=== PATIENT | male | born 1970 | race Caucasian/White ===

== ENCOUNTER 2017-09-19 22:06 | Emergency (ER) | payer OTHER ==
[~2017-09-19] VITALS: Ht 160 cm; Wt 95.7 kg
[~2017-09-19 22:06] MED LIST: LORA-476 PO; QUET100T PO
--- NOTE | 2017-09-19 22:06 | NUR ---
[facility] TO ER OF2
[2017-09-19 22:07] VITALS: BP 131/75
--- NOTE | 2017-09-19 22:23 | NUR ---
PT BIB [facility] C/O BODY PAIN S/P T/C 1 MTHS AGO, METH, ETOH, PRE-BOOK FOR MEDICAL CLEARANCE, CHRONIC PAIN, PTSD, ANXIETY. PAIN 04/04. Pupils equal and reactive to light bilaterally. No facial droop noted. No smile deficit noted. Speech normal for patient. Patient is alert and oriented to person, place, time and event. Bilateral hand crystallizer operator equal. Bilateral foot push equal.
--- NOTE | 2017-09-19 23:40 | NUR ---
Patient being evaluated by physician
[2017-09-19] MEDS ORDERED: LORazepam 1 MG TAB PO ONE (23:55)
[2017-09-20 00:15] VITALS: BP 123/72
--- NOTE | 2017-09-20 00:16 | NUR ---
Patient discharged with v/s stable. Written and verbal after care instructions given and explained. Patient alert, oriented and verbalized understanding of instructions. Police with in custody. All questions addressed prior to discharge. ID band removed. Patient advised to follow up with PMD.NO RX given. Patient educated on indication of medication including possible reaction and side effects. Opportunity to ask questions provided and answered.
== END 2017-09-20 00:15 ==
LOC: MED 22:06
DX: Z02.89 Encounter for other administrative examinations (principal); F19.90 Other psychoactive substance use, unspecified, uncomplicated; F41.9 Anxiety disorder, unspecified; R68.84 Jaw pain; J44.9 Chronic obstructive pulmonary disease, unspecified; I10 Essential (primary) hypertension; Z79.899 Other long term (current) drug therapy
CPT/HCPCS: 99283

== ENCOUNTER 2018-11-04 13:37 | Emergency (ER) | payer OTHER ==
[~2018-11-04] VITALS: Ht 162.6 cm; Wt 69.4 kg
[2018-11-04 13:56] VITALS: BP 120/69
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
[2018-11-04 15:34] VITALS: BP 124/68
--- NOTE | 2018-11-04 15:35 | NUR ---
Patient discharged with v/s stable. Written and verbal after care instructions given and explained. Patient alert, oriented and verbalized understanding of instructions. Ambulatory with steady gait. All questions addressed prior to discharge. ID band removed. Patient advised to follow up with PMD. Rx of IBUPROFEN 600MG, BACTRIM DS 800MG, KEFLEX 500MG. given. Patient educated on indication of medication including possible reaction and side effects. Opportunity to ask questions provided and answered.
== END 2018-11-04 15:35 | disposition home or self-care (01) ==
LOC: MED 13:37
DX: L03.114 Cellulitis of left upper limb (principal); J44.9 Chronic obstructive pulmonary disease, unspecified; I10 Essential (primary) hypertension; Z87.442 Personal history of urinary calculi; Z79.899 Other long term (current) drug therapy; W57.XXXA Bitten or stung by nonvenomous insect and other nonvenomous arthropods, initial encounter; Y93.89 Activity, other specified; Y92.89 Other specified places as the place of occurrence of the external cause; Y99.8 Other external cause status
CPT/HCPCS: 99283

== ENCOUNTER 2018-11-05 10:39 | Emergency (ER) | payer OTHER ==
[~2018-11-05] VITALS: Ht 165.1 cm; Wt 70.0 kg
[2018-11-05 10:49] VITALS: BP 146/85
[2018-11-05 12:25] VITALS: BP 146/85
[2018-11-05] MEDS: IBUPROFEN 600 MG TAB PO ONE (12:25)
== END 2018-11-05 12:25 | disposition home or self-care (01) ==
LOC: MED 10:39
DX: S60.812A Abrasion of left wrist, initial encounter (principal); J44.9 Chronic obstructive pulmonary disease, unspecified; I10 Essential (primary) hypertension; Z79.899 Other long term (current) drug therapy; X58.XXXA Exposure to other specified factors, initial encounter; Y93.89 Activity, other specified; Y92.89 Other specified places as the place of occurrence of the external cause; Y99.8 Other external cause status
CPT/HCPCS: 99281

== ENCOUNTER 2018-12-11 14:27 | Inpatient (IN) | payer OTHER ==
[~2018-12-11] VITALS: Ht 162.6 cm; Wt 71.7 kg
[2018-12-11 14:45] VITALS: BP 149/88
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
[2018-12-11] MEDS ORDERED: NACL 0.9% 1,000 ML IV SCH (16:44)
[2018-12-11] MEDS ORDERED: fentaNYL 0.05 MG/ML VIAL IVP ONE (16:45)
[2018-12-11] MEDS ORDERED: VANCOMYCIN 1,000 MG in DEXTROSE 5% 250 ML IV ONE (16:45)
[2018-12-11] MEDS ORDERED: VANCOMYCIN 1,000 MG VIAL ONE (17:00)
[2018-12-11 17:25] LABS: BASOPHILS % (AUTO) 0.4 % (0.0-2.0); EOSINOPHILS # (AUTO) 0.1 K/uL (0-0.4); HEMATOCRIT 43.4 % (36-52); HEMOGLOBIN 14.1 g/dL (12.0-18.0); LYMPHOCYTES # (AUTO) 2.6 K/uL (2.0-11.5); LYMPHOCYTES % (AUTO) 21.8 % (20.5-51.1); MEAN CORPUSCULAR HEMOGLOBIN 29 pg (27-31); MEAN CORPUSCULAR HGB CONC 33 g/dL (33-37); MEAN CORPUSCULAR VOLUME 89.5 fL (80-94); MONOCYTES % (AUTO) 8.3 % (1.7-9.3); NEUTROPHILS # (AUTO) 8.2 K/uL (1.8-7.7); NEUTROPHILS % (AUTO) 68.5 % (42.2-75.2); PLATELET COUNT (AUTO) 295 K/uL (140-450); RED BLOOD CELL COUNT(AUTO) 4.84 MIL/uL (4.20-6.10); WHITE BLOOD COUNT (AUTO) 11.9 K/uL (4.8-10.8)
[2018-12-11 17:34] LABS: ANION GAP 11.6 (8-16); CARBON DIOXIDE 29.3 mmol/L (21-32); POTASSIUM 3.9 mmol/L (3.5-5.1)
[2018-12-11 17:39] LABS: ALBUMIN 3.4 g/dL (3.4-5.0); TOTAL BILIRUBIN 0.2 mg/dL (0.0-1.0)
[2018-12-11 17:40] LABS: PROTHROMBIN TIME 9.4 secs (10.8-13.4)
[2018-12-11] MEDS ORDERED: ACETAMINOPHEN 325 MG TAB PO PRN (17:45)
[2018-12-11] MEDS ORDERED: VANCOMYCIN PER PHARMACY MC PRN (17:45)
[2018-12-11] MEDS ORDERED: ONDANSETRON 4 MG/2 ML VIAL IVP PRN (17:45)
--- NOTE | 2018-12-11 18:15 | NUR ---
PT TAKEN TO [facility] FLOOR BY KARISHMA NIXON VIA WHEELCHAIR
--- NOTE | 2018-12-11 18:25 | NUR ---
Patient will be admitted to care of DR CH. Admited to MS. Will go to room 106A. Belongings list completed. Report to ISAAC SCHWARZ.
--- NOTE | 2018-12-11 19:30 | NUR ---
RECEIVED REPORT FROM ISAAC SCHWARZ. PT SLEEPING IN BED. NO S/S OF DISTRESS. ON ROOM AIR. PTS R HAND INDEX FINGER SWOLLEN. PT HAS NO JEWELRY ON HAND. PT CELLULITIS ON LEFT HAND.IV ON LFA 22G. IVF INFUSING PER ORDERS. VANCO INFUSING. SKIN INTACT PER NURSE. PLAN OF CARE DISCUSSED. PT STATES, "I JUST WANT TO BE LEFT ALONE AND GO BACK TO SLEEP." ALL SAFETY MEASURES ARE IN PLACE. CALL LIGHT WITHIN REACH.
--- NOTE | 2018-12-11 20:03 | NUR ---
PAGED DR HODGES FOR ORDERS PT RATING PAIN 10/10 ORDER FOR MORPHINE RECEIVED. NO IVF.
[2018-12-11] MEDS: MORPHINE SULFATE 4 MG/ML SYR IVP PRN (20:41)
--- NOTE | 2018-12-11 20:41 | NUR ---
MORPHINE ADMINISTERED. ATTEMPTED TO DO ADMISSION ASSESSMENT. PT REFUSED. 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
--- NOTE | 2018-12-11 22:00 | NUR ---
ASSISTED PT WITH URINAL. PT GETS EASILY AGITATED AND THEN QUICKLY APOLOGIZES. SAFETY MEASURES IN PLACE. CALL LIGHT WITHIN REACH.
[2018-12-11 23:40] VITALS: BP 150/86
--- NOTE | 2018-12-11 23:42 | NUR ---
VITAL SIGNS ARE WITHIN NORMAL LIMITS.CALL LIGHT WITHIN REACH. WILL CONTINUE TO MONITOR.
--- NOTE | 2018-12-12 01:08 | NUR ---
PT SLEEPING. NO S/S OF DISTRESS. SAFETY MEASURES ARE IN PLACE. CALL LIGHT WITHIN REACH.
--- NOTE | 2018-12-12 04:06 | NUR ---
PT SLEEPING COMFORTABLY IN BED. NO S/S OF DISTRESS. CALL LIGHT WITHIN REACH.
[2018-12-12] MEDS: MORPHINE SULFATE 4 MG/ML SYR IVP PRN ×4 (04:22→23:48)
[2018-12-12 05:36] LABS: BASOPHILS % (AUTO) 0.2 % (0.0-2.0); EOSINOPHILS # (AUTO) 0.2 K/uL (0-0.4); EOSINOPHILS % (AUTO) 2.2 % (0.0-4.0); HEMATOCRIT 41.7 % (36-52); HEMOGLOBIN 13.7 g/dL (12.0-18.0); LYMPHOCYTES # (AUTO) 2.6 K/uL (2.0-11.5); LYMPHOCYTES % (AUTO) 26.1 % (20.5-51.1); MEAN CORPUSCULAR HEMOGLOBIN 29 pg (27-31); MEAN CORPUSCULAR HGB CONC 33 g/dL (33-37); MEAN CORPUSCULAR VOLUME 89.1 fL (80-94); MONOCYTES # (AUTO) 0.9 K/uL (0.8-1.0); MONOCYTES % (AUTO) 8.7 % (1.7-9.3); NEUTROPHILS # (AUTO) 6.2 K/uL (1.8-7.7); NEUTROPHILS % (AUTO) 62.8 % (42.2-75.2); PLATELET COUNT (AUTO) 300 K/uL (140-450); RED BLOOD CELL COUNT(AUTO) 4.68 MIL/uL (4.20-6.10); RED CELL DISTRIBUTION WIDTH 14.1 % (11.6-13.7); WHITE BLOOD COUNT (AUTO) 9.8 K/uL (4.8-10.8)
[2018-12-12 06:30] LABS: ALBUMIN 3.1 g/dL (3.4-5.0); ANION GAP 7.2 (8-16); CARBON DIOXIDE 30.6 mmol/L (21-32); CREATININE 0.9 mg/dL (0.7-1.3); POTASSIUM 3.8 mmol/L (3.5-5.1); TOTAL BILIRUBIN 0.4 mg/dL (0.0-1.0)
--- NOTE | 2018-12-12 07:21 | NUR ---
ENDORSED PT TO DAY SHIFT RN. PT IS IN STABLE CONDITION.
--- NOTE | 2018-12-12 07:21 | NUR ---
RECEIVED PATIENT REPORT AT BEDSIDE. PATIENT AWAKE AND ALERT. ERYTHEMA AND SWELLING NOTED ON THE RIGHT INDEX FINGER. NO DRAINAGE NOTED. FALL PRECAUTIONS IN PLACE. WILL CONTINUE TO MONITOR
[2018-12-12 07:43] VITALS: BP 151/88
[2018-12-12] MEDS ORDERED: VANCOMYCIN PER PHARMACY MC PRN (08:55)
--- NOTE | 2018-12-12 09:03 | NUR ---
SPOKE WITH KAYVA [phone], PATIENT'S SISTER, AND ASKED ABOUT PATIENT'S HOME MEDICATIONS. SISTER TO CALL BACK.
--- NOTE | 2018-12-12 09:45 | NUR ---
URINE SAMPLE COLLECTED AND SENT TO THE LAB
--- NOTE | 2018-12-12 10:17 | NUR ---
PATIENT ASLEEP IN BED. NO S/S OF DISTRESS NOTED AT THIS TIME
[2018-12-12 10:50] LABS: BARBITURATE, URINE NEG. ng/ml (NEG <=200); BENZODIAZEPINE, URINE NEG. ng/mL (NEG <=200); CANNABINOID, URINE NEG. ng/mL (NEG <=50); COCAINE, URINE NEG. ng/mL (NEG <=300); OPIATE, URINE NEG. ng/mL (NEG <=2000); PHENCYCLIDINE SCREEN,URINE NEG. ng/mL (NEG <=25)
[2018-12-12] MEDS: VANCOMYCIN 1GM/DEXT 5% PREMIX 200 ML IV SCH ×2 (11:14→22:59)
--- NOTE | 2018-12-12 12:03 | NUR ---
SPOKE TO PATIENT'S SISTER REGARDING PATIENT'S MED LIST AND WAS GIVEN PATIENT'S PHARMACY. SENT FAX REQUEST TO [facility] AND [facility] TO SEND PATIENT'S MEDICATIONS LIST.
[2018-12-12] MEDS ORDERED: HYDR25CA32 PO (14:33)
[2018-12-12] MEDS ORDERED: MIRT15TA PO (14:33)
[2018-12-12] MEDS ORDERED: CLIN300C2 PO (14:33)
[2018-12-12] MEDS ORDERED: OXCA150T2 PO (14:33)
[2018-12-12] MEDS ORDERED: ALBU0.0912 IH (14:33)
[2018-12-12] MEDS ORDERED: ACET-787 PO (14:33)
[2018-12-12] MEDS ORDERED: OXCA300T PO (14:33)
[2018-12-12] MEDS ORDERED: HYDR-5122 PO (14:33)
[2018-12-12] MEDS ORDERED: SULF1TAB12 PO (14:33)
[2018-12-12] MEDS ORDERED: AMOX500C25 PO (14:33)
[2018-12-12] MEDS ORDERED: LORA-476 PO (14:33)
[2018-12-12] MEDS ORDERED: HYDR-3293 PO (14:33)
[2018-12-12] MEDS ORDERED: CEPH250C16 PO (14:35)
[2018-12-12] MEDS ORDERED: BUPR300T70 PO (14:35)
--- NOTE | 2018-12-12 14:44 | NUR ---
SPOKE TO DR CH AND INFORMED HIM THAT PATIENT'S HOME MED LIST WAS OBTAINED AND DOCUMENTED
[2018-12-12] MEDS ORDERED: LORazepam 1 MG TAB PO PRN (14:45)
[2018-12-12] MEDS ORDERED: hydrOXYzine PAMOATE 25 MG CAP PO PRN (14:45)
--- NOTE | 2018-12-12 15:34 | NUR ---
PT IS ASLEEP IN BED. NO S/S OF DISTRESS NOTED
[2018-12-12] MEDS: HYDROcodone/APAP 5/325 MG 1 TAB TAB PO PRN ×2 (16:15→20:49)
[2018-12-12 16:17] VITALS: BP 142/77
--- NOTE | 2018-12-12 19:28 | NUR ---
PT REPORT GIVEN AT BEDSIDE. PT ENDORSED IN STABLE CONDITION
--- NOTE | 2018-12-12 19:29 | NUR ---
RECEIVED REPORT FROM SAMMY SCHWARZ. PT SLEEPING IN BED. NO S/S OF DISTRESS. ON ROOM AIR. PTS R HAND INDEX FINGER SWOLLEN. PT HAS NO JEWELRY ON HAND. PT CELLULITIS ON LEFT HAND.IV ON LFA 22G. IVF INFUSING PER ORDERS. PTS AMBULATORY USES URINAL. PLAN OF CARE DISCUSSED. SAFETY MEASURES ARE IN PLACE. CALL LIGHT WITHIN REACH.
[2018-12-12] MEDS: OXcarbazepine 150 MG TAB PO SCH (20:45)
[2018-12-12] MEDS: buPROPion 150 MG TABER PO SCH (20:45)
[2018-12-12] MEDS: MIRTAZAPINE 15 MG TAB PO SCH (20:45)
--- NOTE | 2018-12-12 20:45 | NUR ---
DUE MEDICATIONS GIVEN. PT TOLERATED WELL. ALL NEEDS MET AT THIS TIME. CALL LIGHT WITHIN REACH. WILL CONTINUE TO MONITOR.
--- NOTE | 2018-12-13 | NUR ---
VS ARE WITHIN NORMAL LIMITS.ALL NEEDS MET AT THIS TIME. CALL LIGHT WITHIN REACH.
[2018-12-13 00:02] VITALS: BP 147/78
--- NOTE | 2018-12-13 02:30 | NUR ---
PT IS SLEEPING COMFORTABLY IN BED. NO S/S OF DISTRESS. SAFETY MEASURES ARE IN PLACE. CALL LIGHT WITHIN REACH.
--- NOTE | 2018-12-13 04:31 | NUR ---
PT EATING A SNACK. SAFETY MEASURES ARE IN PLACE. CALL LIGHT WITHIN REACH.
[2018-12-13] MEDS: MORPHINE SULFATE 4 MG/ML SYR IVP PRN ×3 (05:27→21:19)
--- NOTE | 2018-12-13 07:26 | NUR ---
ENDORSED PT TO DAY SHIFT RN. PT IS IN STABLE CONDITION.
--- NOTE | 2018-12-13 07:27 | NUR ---
RECEIVED BEDSIDE REPORT FROM GREEN CHAIN WORKER NURSE. PATIENT ON MED SURGE AND STANDARD PRECAUTIONS. PATIENT SLEEPING AT THIS TIME. SKIN INTACT. R HAND INDEX FINGER CELLULITIS. IV ON L FA 22 G SALINE LOCK, CLEAN DRY INTACT AND PATENT. PATIENT ON ROOM AIR, NO DISTRESS NOTED. PATIENT AMBULATORY AND CONTINENT. BED IN LOW POSITION, CALL LIGHT WITHIN REACH. WILL CONTINUE TO MONITOR.
[2018-12-13 08:00] VITALS: BP 152/87
--- NOTE | 2018-12-13 08:25 | NUR ---
PATIENT HAS BEEN SCREENED AND CATEGORIZED MODERATE NUTRITION RISK. PATIENT WILL BE SEEN WITHIN 3-5 DAYS OF ADMISSION. 12/14/18[address]
[2018-12-13] MEDS ORDERED: NON-FORMULARY ITEM (Bupropion HCl* (Wellbutrin Xl*) 1 TAB) PO SCH (09:00)
[2018-12-13] MEDS ORDERED: buPROPion 150 MG TABER PO SCH (09:00)
[2018-12-13] MEDS: buPROPion 150 MG TABER PO SCH ×2 (09:53→21:11)
[2018-12-13] MEDS: OXcarbazepine 150 MG TAB PO SCH ×2 (09:53→21:12)
--- NOTE | 2018-12-13 10:07 | NUR ---
ADMINISTERED PRESCRIBED MEDS AND MORPHINE PRN. PATIENT TOLERATED WELL. WILL CONTINUE TO MONITOR.
--- NOTE | 2018-12-13 12:38 | NUR ---
PATIENT AMBULATED TO BATHROOM. PATIENT HAD BOWEL MOVEMENT. WILL MEDICATE WITH NORCO PRN FOR PAIN.
[2018-12-13] MEDS: VANCOMYCIN 1,250 MG in DEXTROSE 5% 250 ML IV SCH ×2 (12:48→23:41)
[2018-12-13] MEDS: HYDROcodone/APAP 5/325 MG 1 TAB TAB PO PRN (12:49)
--- NOTE | 2018-12-13 12:50 | NUR ---
DISCONTINUED IV BECAUSE PATIENT IN PAIN WHEN FLUSHING SITE. WILL RESTART NEW IV.
--- NOTE | 2018-12-13 13:34 | NUR ---
CM NOTE PER HEMANTH OF [facility] (PCP) PH# [phone], THE PATIENT IS SCHEDULED FOR OUTPATIENT FOLLOW UP ON DECEMBER 21, 2018, 2:45 PM, AT THE CLINIC AT [address] [place] [address]. I GAVE THE PATIENT A COPY OF HIS OUTPATIENT FOLLOW UP SCHEDULE.
--- NOTE | 2018-12-13 13:52 | NUR ---
STARTED NEW IV ON R FA 22 G. DRESSING CLEAN DRY AND INTACT. IV PATENT AND NO COMPLAINTS OF PAIN. INFUSING VANCOMYCIN AT 165.
--- NOTE | 2018-12-13 15:10 | NUR ---
PATIENT REQUESTING SANDWICH. CALLED [facility] FOR SANDWICH. STATED THEY WILL BRING SANDWICH IN A FEW MINUTES.
[2018-12-13 16:00] VITALS: BP 143/89
--- NOTE | 2018-12-13 17:00 | NUR ---
PATIENT SLEEPING. NO DISTRESS NOTED, ON ROOM AIR. WILL CONTINUE TO MONITOR.
--- NOTE | 2018-12-13 19:29 | NUR ---
GAVE REPORT TO HOSPICE LIAISON NURSE. PATIENT ENDORSED IN STABLE CONDITION.
--- NOTE | 2018-12-13 19:30 | NUR ---
RECEIVED FROM AM RN IN BED SLEEPING. REFUSING TO OPEN EYES. PREFERS TO SLEEP AND NOT BE DISTURBED. CALL LIGHT WITH IN REACH. ENCOURAGED TO CALL FOR ANY HELP HE MAY NEED. FLACC 0. NO RESTLESSNESS.
[2018-12-13 21:10] VITALS: BP 140/74
[2018-12-13] MEDS: MIRTAZAPINE 15 MG TAB PO SCH (21:12)
--- NOTE | 2018-12-13 21:19 | NUR ---
REQUESTED FOR MORPHINE. WILL MEDICATE ORDERED. C/O RIGHT HAND/CELLULITIS PAIN.
--- NOTE | 2018-12-13 22:30 | NUR ---
COVERED HIMSELF WITH BLANKET INCLUDING HIS HEAD. GETS VERY UPSET IF AWAKENED OR TOUCHED. "DO YOU HAVE TO WAKE ME UP" IN A LOUD AGGRESSIVE VOICE. EXPLAINED THAT I AM JUST CHECKING ON HIM.
--- NOTE | 2018-12-13 23:56 | NUR ---
PT. UPSET TO BE AWAKENED. CONSTANTLY SAYS "GET AWAY " "DON'T DISTURB ME" EXPLAINED NEED TO CHECK ON HIS IV SITE. ANGRILY SAYS GO AWAY. COVERS HIMSELF WITH BLANKET INCLUDING HIS HEAD. SAW IVF SITE INTACT AND NO REDNESS NOTED. NO COMPLAINTS OF PAIN IN IVF SITE.
--- NOTE | 2018-12-14 | NUR ---
VITAL SIGNS TAKEN AND PT. REMINDED THAT HE IS NPO MIDNIGHT RT PROCEDURE IN THE AFTERNOON SCHEDULED I AND D OF RIGHT HAND.
--- NOTE | 2018-12-14 04:22 | NUR ---
SLEEPING. REFUSING TO BE DISTURBED THIS SHIFT. SHOUTS AND KICKS LEG IN BED IF AWAKENED.
--- NOTE | 2018-12-14 06:11 | NUR ---
BLOOD SPECIMEN TAKEN BY AVP. BETTER AFFECT AT THIS TIME. MADE PT. EXPLAIN WHAT PROCEDURE TO BE DONE TO HIS LEFT INDEX FINGER. ABLE TO ANSWER STATING" WHATEVER , THE DOCTOR SAID HE WILL TAKE OUT WHAT NEEDS TO BE TAKEN OUT FROM MY SWOLLEN HAND." PT. WENT BACK TO SLEEP AFTER AND REFUSED TO FURTHER TALK. Addendum: 12/14/18 at 1944 by Shweta Whalen RN ERROR TO SITE. I AND D TO RIGHT INDEX FINGER.
--- NOTE | 2018-12-14 07:25 | NUR ---
RECEIVED REPORT FROM APPLICATION SUPPORT ANALYST NURSE. PATIENT LYING DOWN IN BED SLEEPING, AROUSABLE BY VOICE. NO DISTRESS NOTED. DENIES ANY PAIN AT THIS TIME. AAOX4, CALM, COOPERATIVE, SKIN COLOR APPROPRIATE TO ETHNICITY. WARM TO TOUCH. HAS RIGHT INDEX FINGER CELLULITIS THAT IS INTACT. ABDOMEN SOFT, NON-DISTENDED. REVIEWED PLAN OF CARE WITH PATIENT. IV SITE NOT INTACT, WILL INSERT NEW ONE. PATIENT VERBALIZED UNDERSTANDING. SAFETY MEASURES IN PLACE, CALL LIGHT WITHIN REACH. WILL CONTINUE TO MONITOR.
[2018-12-14 07:32] LABS: ANION GAP 10.9 (8-16); CARBON DIOXIDE 28.2 mmol/L (21-32); CREATININE 1.1 mg/dL (0.7-1.3); POTASSIUM 4.1 mmol/L (3.5-5.1)
[2018-12-14 07:33] LABS: TOTAL BILIRUBIN 0.2 mg/dL (0.0-1.0)
[2018-12-14 08:00] VITALS: BP 150/84
[2018-12-14 08:46] LABS: BASOPHILS % (AUTO) 0.4 % (0.0-2.0); EOSINOPHILS # (AUTO) 0.2 K/uL (0-0.4); EOSINOPHILS % (AUTO) 2.6 % (0.0-4.0); HEMATOCRIT 43.5 % (36-52); HEMOGLOBIN 14.4 g/dL (12.0-18.0); LYMPHOCYTES # (AUTO) 1.6 K/uL (2.0-11.5); LYMPHOCYTES % (AUTO) 20.5 % (20.5-51.1); MEAN CORPUSCULAR HEMOGLOBIN 30 pg (27-31); MEAN CORPUSCULAR HGB CONC 33 g/dL (33-37); MEAN CORPUSCULAR VOLUME 89.4 fL (80-94); MONOCYTES # (AUTO) 0.9 K/uL (0.8-1.0); MONOCYTES % (AUTO) 10.7 % (1.7-9.3); NEUTROPHILS # (AUTO) 5.3 K/uL (1.8-7.7); NEUTROPHILS % (AUTO) 65.8 % (42.2-75.2); PLATELET COUNT (AUTO) 326 K/uL (140-450); RED BLOOD CELL COUNT(AUTO) 4.86 MIL/uL (4.20-6.10); RED CELL DISTRIBUTION WIDTH 13.5 % (11.6-13.7)
[2018-12-14] MEDS: buPROPion 150 MG TABER PO SCH ×2 (09:00→20:51)
[2018-12-14] MEDS: OXcarbazepine 150 MG TAB PO SCH ×2 (09:00→20:51)
--- NOTE | 2018-12-14 09:00 | NUR ---
NEW IV LINE INSERTED ON LEFT FOREARM #20 GAUGE ON FIRST ATTEMPT. PATIENT TOLERATED WELL. WILL CONTINUE TO MONITOR
--- NOTE | 2018-12-14 09:40 | NUR ---
OR NURSES ON UNIT TO TAKE PATIENT FOR SURGERY. WILL CONTINUE TO MONITOR WHEN PATIENT RETURNS ON UNIT.
[2018-12-14] MEDS ORDERED: BUPIVACAINE-MPF 0.25% 30 ML VIAL INJ ONE (10:07)
[2018-12-14] MEDS ORDERED: fentaNYL 0.05 MG/ML VIAL ONE (10:08)
[2018-12-14] MEDS ORDERED: MIDAZOLAM 2 MG/2 ML VIAL ONE (10:08)
[2018-12-14] MEDS ORDERED: SEVOFLURANE 250 ML BTL INH ONE (10:10)
[2018-12-14] MEDS ORDERED: PROPOFOL 200 MG/20 ML VIAL IV ONE (10:10)
[2018-12-14] MEDS ORDERED: MEPERIDINE 25 MG/ML SYR IVP PRN (11:05)
[2018-12-14] MEDS ORDERED: HYDROmorphone 1 MG/ML AMP IVP PRN (11:05)
[2018-12-14] MEDS ORDERED: ONDANSETRON 4 MG/2 ML VIAL IVP PRN (11:05)
[2018-12-14] MEDS ORDERED: diphenhydrAMINE 50 MG/ML VIAL IVP PRN (11:05)
[2018-12-14] MEDS: VANCOMYCIN 1,250 MG in DEXTROSE 5% 250 ML IV SCH ×2 (12:37→23:40)
[2018-12-14] MEDS: LACTATED RINGERS 1,000 ML IV SCH ×2 (12:37→19:24)
--- NOTE | 2018-12-14 12:42 | NUR ---
PATIENT LYING DOWN IN BED SLEEPING, AROUSABLE BY VOICE. NO DISTRESS NOTED. DENIES ANY PAIN AT THIS TIME. SCHEDULED MEDICATIONS DUE GIVEN. WILL CONTINUE TO MONITOR.
[2018-12-14] MEDS: HYDROcodone/APAP 5/325 MG 1 TAB TAB PO PRN (15:16)
--- NOTE | 2018-12-14 15:21 | NUR ---
PATIENT SITTING IN BED WITH COMPLAINTS OF PAIN ON RIGHT INDEX FINGER. NORCO GIVEN. SAFETY MEASURES IN PLACE, CALL LIGHT WITHIN REACH. WILL CONTINUE TO MONITOR.
[2018-12-14 16:00] VITALS: BP 143/77
--- NOTE | 2018-12-14 17:30 | NUR ---
PATIENT LYING DOWN IN BED SLEEPING, AROUSABLE BY VOICE. NO DISTRESS NOTED. DENIES ANY PAIN. CONDITION UNCHANGED. WILL CONTINUE TO MONITOR.
--- NOTE | 2018-12-14 19:22 | NUR ---
RECEIVED FROM AM RN IN BED SLEEPING. PT. ABLE TO VERBALIZE NEEDS WELL. NO SOB. NO RESTLESSNESS. DRESSING TO I AND D INDEX FINGER RIGHT HAND INTACT AND NO BLEEDING. CALL LIGHT WITH IN REACH.
--- NOTE | 2018-12-14 19:26 | NUR ---
GAVE REPORT TO DECALER NURSE FOR CONTINUITY OF CARE. PATIENT IN STABLE CONDITION
[2018-12-14 20:48] VITALS: BP 142/78
[2018-12-14] MEDS: MORPHINE SULFATE 4 MG/ML SYR IVP PRN (20:51)
[2018-12-14] MEDS: MIRTAZAPINE 15 MG TAB PO SCH (20:51)
--- NOTE | 2018-12-14 22:30 | NUR ---
PT. DROPPED HIS URINAL FULL OF URINE ON THE BRITTNEE. CALLED HOUSE KEEPING TO CLEAN UP. ENCOURAGED PT. TO PLEASE AFTER USING URINAL TO JUST PUT IT ON HIS TABLE SO WE CAN SEE IT AND EMPTY. PT. REFUSED TO LISTEN AND JUST WENT BACK TO SLEEPING.
--- NOTE | 2018-12-15 00:21 | NUR ---
SLEEPING. WOKE UP EASILY WHEN VITAL SIGNS TAKEN. COMPLAINED WHY I KEEP WAKING HIM UP.
[2018-12-15 00:25] VITALS: BP 138/76
[2018-12-15] MEDS: LACTATED RINGERS 1,000 ML IV SCH (01:18)
[2018-12-15 03:16] VITALS: BP 140/84
--- NOTE | 2018-12-15 03:17 | NUR ---
PT. AWAKE AND USING URINAL. REQUESTING FOR PAIN RELIEVER RT "MY RIGHT INDEX FINGER HURTING". WILL ADMINISTER ORDERED.
[2018-12-15] MEDS: MORPHINE SULFATE 4 MG/ML SYR IVP PRN (03:22)
--- NOTE | 2018-12-15 06:58 | NUR ---
SLEPT WELL THIS SHIFT. DRESSING TO RIGHT HAND INTACT AND NO BLEEDING . CALL LIGHT WITH IN REACH.
[2018-12-15 07:06] LABS: ALBUMIN 2.8 g/dL (3.4-5.0); ANION GAP 10.8 (8-16); CARBON DIOXIDE 28.3 mmol/L (21-32); POTASSIUM 4.1 mmol/L (3.5-5.1)
[2018-12-15 07:08] LABS: HEMOGLOBIN 13.6 g/dL (12.0-18.0); RED BLOOD CELL COUNT(AUTO) 4.61 MIL/uL (4.20-6.10); WHITE BLOOD COUNT (AUTO) 10.5 K/uL (4.8-10.8)
[2018-12-15 07:09] LABS: BASOPHILS % (AUTO) 0.2 % (0.0-2.0); EOSINOPHILS # (AUTO) 0.1 K/uL (0-0.4); EOSINOPHILS % (AUTO) 0.6 % (0.0-4.0); HEMATOCRIT 40.8 % (36-52); LYMPHOCYTES # (AUTO) 2.3 K/uL (2.0-11.5); LYMPHOCYTES % (AUTO) 21.4 % (20.5-51.1); MEAN CORPUSCULAR HEMOGLOBIN 30 pg (27-31); MEAN CORPUSCULAR HGB CONC 34 g/dL (33-37); MEAN CORPUSCULAR VOLUME 88.4 fL (80-94); MONOCYTES # (AUTO) 1.1 K/uL (0.8-1.0); MONOCYTES % (AUTO) 10.1 % (1.7-9.3); NEUTROPHILS # (AUTO) 7.1 K/uL (1.8-7.7); NEUTROPHILS % (AUTO) 67.7 % (42.2-75.2); PLATELET COUNT (AUTO) 321 K/uL (140-450); RED CELL DISTRIBUTION WIDTH 13.7 % (11.6-13.7)
--- NOTE | 2018-12-15 07:10 | NUR ---
RECEIVED PATIENT REPORT AT BEDSIDE. PATIENT ASLEEP BUT AROUSABLE. NO S/S OF DISTRESS. DRESSING ON THE RIGHT HAND CLEAN, DRY AND INTACT. FALL PRECAUTIONS IN PLACE. WILL CONTINUE TO MONITOR
[2018-12-15 07:32] LABS: TOTAL BILIRUBIN 0.2 mg/dL (0.0-1.0)
[2018-12-15] MEDS ORDERED: SULF1TAB12 PO (08:58)
--- NOTE | 2018-12-15 09:00 | NUR ---
SPOKE WITH DR DOMINGUEZ AND INFORMED HIM THAT PATIENT IS BEING DISCHARGE BY DR CH. PER DR DOMINGUEZ, PATIENT IS CLEARED FOR DISCHARGE FROM HIS STANDPOINT WELL. WANTS THE PATIENT TO CALL HIS OFFICE FOR APPOINTMENT. ALSO ORDERS TO CHANGE THE WOUND DRESSING PRIOR TO DISCHARGE
[2018-12-15] MEDS: OXcarbazepine 150 MG TAB PO SCH (09:50)
[2018-12-15] MEDS: buPROPion 150 MG TABER PO SCH (09:50)
[2018-12-15 09:55] VITALS: BP 135/90
--- NOTE | 2018-12-15 10:15 | NUR ---
PATIENT DISCHARGED TO HOME. PATIENT REFUSES TO HAVE HIS WOUND DRESSING TOUCHED/CHANGED AT THIS TIME. EXPLAINED TO THE PATIENT THAT THE DR ORDERS TO HAVE IT CHANGED. PT VERBALIZED UNDERSTANDING BUT INSISTED OF NOT HAVING IT CHANGED. PT PROVIDED WITH WOUND DRESSING SUPPLIES. PT INSTRUCTED TO CALL DR DOMINGUEZ'S OFFICE FOR APPOINTMENT. PATIENT VERBALIZED UNDERSTANDING. DISCHARGE PRESCRIPTIONS GIVEN. IV LINE DISCONTINUED. PATIENT LEFT WITH ALL HIS BELONGINGS AND DISCHARGE PAPERS. PATIENT LEFT IN STABLE CONDITION
== END 2018-12-15 10:15 | disposition home or self-care (01) | DRG 364 ==
LOC: MED 14:27 → MTU 17:46 → OBSVTOIN 12-12 20:41
PROVIDERS: ADMIT Hospitalist; ATTEND Hospitalist
PROC: 0J9J0ZZ Drainage of Right Hand Subcutaneous Tissue and Fascia, Open Approach (ICD-10-PCS; principal; 2018-12-14 09:45)
DX: L02.511 Cutaneous abscess of right hand (principal); F15.10 Other stimulant abuse, uncomplicated; F31.9 Bipolar disorder, unspecified; L03.011 Cellulitis of right finger; I10 Essential (primary) hypertension; J44.9 Chronic obstructive pulmonary disease, unspecified; L03.114 Cellulitis of left upper limb; Z88.0 Allergy status to penicillin; Z79.899 Other long term (current) drug therapy; Z59.0 Homelessness; Z72.0 Tobacco use; Z87.442 Personal history of urinary calculi
CPT/HCPCS: 96361; 96374; 99285; G0378; 36415; 71045; 73130; 80053; 80202; 80305; 83605; 85025; 85610; 85730; 87040; 87070; 87075; 87081; 87205; J1644; J2250; J2270; J2704; J3010; J3370; J3490; J7030; J7060; J7120; Q0092

== ENCOUNTER 2019-02-06 08:51 | Emergency (ER) | payer OTHER ==
[~2019-02-06] VITALS: Ht 162.6 cm; Wt 68.0 kg
[~2019-02-06 08:51] MED LIST changes: +ALBU0.0912 IH; +BUPR300T70 PO; +HYDR-3293 PO; +HYDR-5122 PO; +HYDR25CA32 PO; +MIRT15TA PO; +OXCA150T2 PO; +OXCA300T PO; -QUET100T PO; +SULF1TAB12 PO
[2019-02-06 09:00] VITALS: BP 145/113
--- NOTE | 2019-02-06 09:05 | NUR ---
PT AMBULATED TO BED 4
--- NOTE | 2019-02-06 09:05 | NUR ---
C/O RED BUMP UNDER R ARMPIT, AND "BUG BITE" TO BACK OF HEAD X 4 DAYS PAIN 7/10. , NAUSEA, & DIARRHEA X 4 DAYS. DENIES VOMITING & FEVER. UNDER R ARMPIT HAS A BUMP ABOUT THE SIZE OF A QUARTER, RED, NO DISCHARGE OR OPEN WOUND NOTED. BOWEL SOUNDS ARE ACTIVE X4, ABDOMEN SOFT/FLAT/NONTENDER. SKIN IS PINK/WARM/DRY; AAOX4 WITH EVEN AND STEADY GAIT; VSS; PATIENT POSITIONED FOR COMFORT; HOB ELEVATED; BEDRAILS UP X1; BED DOWN. ER MD MADE AWARE OF PT STATUS.
--- NOTE | 2019-02-06 09:40 | NUR ---
GAVE PT URINE CUP
[2019-02-06] MEDS ORDERED: KETOROLAC 60 MG/2 ML VIAL IM ONE (09:45)
[2019-02-06] MEDS ORDERED: NEOMYCIN/POLYMYXIN/BACITRACIN 0.9 GM/1 PKT TP ONE (09:45)
[2019-02-06] MEDS ORDERED: LEVOFLOXACIN 500 MG TAB PO ONE (09:45)
[2019-02-06] MEDS ORDERED: CLINDAMYCIN 600 MG/4 ML VIAL IM ONE (09:45)
--- NOTE | 2019-02-06 10:16 | NUR ---
Dr. Sifuentes at bedside for incision and drainage of abscess.
[2019-02-06] MEDS ORDERED: LIDOCAINE MPF 1% 5mL VIAL ONE (10:22)
[2019-02-06] MEDS ORDERED: MORPHINE SULFATE 4 MG/ML SYR IM ONE (10:30)
--- NOTE | 2019-02-06 10:40 | NUR ---
ERMD AT BEDSIDE PERFORMING I & D
[2019-02-06 11:45] VITALS: BP 143/111
--- NOTE | 2019-02-06 11:45 | NUR ---
Patient discharged with v/s stable. Written and verbal after care instructions given and explained. Patient alert, oriented and verbalized understanding of instructions. Ambulatory with steady gait. All questions addressed prior to discharge. ID band removed. Patient advised to follow up with PMD. Rx of BACTRIM & CLINDAMYCIN given. Patient educated on indication of medication including possible reaction and side effects. Opportunity to ask questions provided and answered. HOMELESS PACKET PROVIDED ALONG WITH A LUNCH TO GO.
== END 2019-02-06 11:45 | disposition home or self-care (01) ==
LOC: MED 08:51
DX: L02.421 Furuncle of right axilla (principal); F20.9 Schizophrenia, unspecified; I10 Essential (primary) hypertension; J44.9 Chronic obstructive pulmonary disease, unspecified; Z88.0 Allergy status to penicillin; Z79.899 Other long term (current) drug therapy
CPT/HCPCS: 96372; 99283; J1885; J2001; J2270; J3490

== ENCOUNTER 2019-06-15 14:53 | Emergency (ER) | payer MEDICAID, OTHER ==
[~2019-06-15] VITALS: Ht 162.6 cm; Wt 72.6 kg
[2019-06-15 15:06] VITALS: BP 100/55
--- NOTE | 2019-06-15 15:14 | NUR ---
PT AMB TO CHAIR E
--- NOTE | 2019-06-15 15:15 | NUR ---
CAME HERE FOR MED REFIL : HYDROXYZINE &MIRTAZAPINE. ALSO C/O TAILBONE PAIN 05/04 X 1 WEEK.MED HX: ANXIETY, BIPOLAR. DENIES N/V/D; SKIN IS PINK/WARM/DRY; AAOX4 WITH EVEN AND STEADY GAIT.
[2019-06-15 16:01] VITALS: BP 100/55
--- NOTE | 2019-06-15 16:01 | NUR ---
Patient discharged with v/s stable. Written and verbal after care instructions given and explained. Patient alert, oriented and verbalized understanding of instructions. Ambulatory with steady gait. All questions addressed prior to discharge. ID band removed. Patient advised to follow up with PMD. Rx of IBUPROFEN, REMERON, LOSARTAN, VISTARIL given. Patient educated on indication of medication including possible reaction and side effects. Opportunity to ask questions provided and answered.
== END 2019-06-15 16:01 | disposition home or self-care (01) ==
LOC: MED 14:53
DX: F32.9 Major depressive disorder, single episode, unspecified (principal); I10 Essential (primary) hypertension; S30.0XXA Contusion of lower back and pelvis, initial encounter; J44.9 Chronic obstructive pulmonary disease, unspecified; Z76.0 Encounter for issue of repeat prescription; Z88.0 Allergy status to penicillin; Z79.899 Other long term (current) drug therapy; X58.XXXA Exposure to other specified factors, initial encounter; Y93.89 Activity, other specified; Y92.89 Other specified places as the place of occurrence of the external cause; Y99.8 Other external cause status
CPT/HCPCS: 99283

== ENCOUNTER 2019-07-17 08:43 | Emergency (ER) | payer MEDICAID ==
[~2019-07-17] VITALS: Ht 162.6 cm; Wt 79.4 kg
--- NOTE | 2019-07-17 08:50 | NUR ---
CALLED PT FROM LOBBY. PT IN RESTROOM
[2019-07-17 08:52] VITALS: BP 148/81
--- NOTE | 2019-07-17 08:54 | NUR ---
PT AMB TO BED 8 WITH STEADY GAIT
--- NOTE | 2019-07-17 09:07 | NUR ---
MED REFILL FOR MIRTAZAPINE, HYDROXYZINE, IBUPROFEN, LOSARTAN HCTZ. PT BP ELEVATED AT THIS TIME. PT STATES HE DID NOT TAKE HIS BP MEDICATIONS THIS AM BECAUSE HE NEEDS IT REFILLED. AA0X4. BED IS DOWN,LOCKED, BED RAIL X 1, ERMD TO SEE PT. PMH- HTN, ANXIETY, COPD
--- NOTE | 2019-07-17 09:10 | NUR ---
DR GUY AT BEDSIDE
[2019-07-17 09:19] VITALS: BP 148/81
--- NOTE | 2019-07-17 09:19 | NUR ---
Written and verbal after care instructions given and explained. Patient alert, oriented and verbalized understanding of instructions. Ambulatory with steady gait. All questions addressed prior to discharge. ID band removed. Patient advised to follow up with PMD. Rx of LOSARTAN, MIRTAZAPINE, HYDROXYZINE HYDROCHLORIDE given. Patient educated on indication of medication including possible reaction and side effects. Opportunity to ask questions provided and answered. PT DECLINED TO HAVE VS RE-TAKEN
== END 2019-07-17 09:19 | disposition home or self-care (01) ==
LOC: MED 08:43
DX: F41.9 Anxiety disorder, unspecified (principal); Z76.0 Encounter for issue of repeat prescription; J44.9 Chronic obstructive pulmonary disease, unspecified; I10 Essential (primary) hypertension; F17.210 Nicotine dependence, cigarettes, uncomplicated; Z98.890 Other specified postprocedural states; Z79.2 Long term (current) use of antibiotics; Z79.899 Other long term (current) drug therapy; Z79.891 Long term (current) use of opiate analgesic; Z79.51 Long term (current) use of inhaled steroids; Z88.0 Allergy status to penicillin
CPT/HCPCS: 99283

== ENCOUNTER 2019-09-04 16:24 | Emergency (ER) | payer MEDICAID, OTHER ==
[~2019-09-04] VITALS: Ht 162.6 cm; Wt 77.6 kg
[2019-09-04 16:29] VITALS: BP 185/97
--- NOTE | 2019-09-04 16:39 | NUR ---
PT WAS TAKEN TO XRAY FROM TRIAGE ROOM VIA WHEELCHAIR ASSISTED BY SCREEN DOOR MAKER.
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
[2019-09-04] MEDS ORDERED: CLINDAMYCIN 600 MG/4 ML VIAL IM ONE (17:05)
[2019-09-04] MEDS ORDERED: KETOROLAC 60 MG/2 ML VIAL IM ONE (17:05)
--- NOTE | 2019-09-04 17:08 | NUR ---
PT IS REQUESTING A MEDICATION REFILL FOR HIS "MONTHLY MEDICATIONS" PT IS UNABLE TO RECALL OR NAME THE MEDICATIONS HE TAKES MONTHLY. PT STATES "THEY ARE ALL ON THE COMPUTER." I PRINTED OUT THE MED REC AND WENT DOWN EACH MEDICATION TO CONFIRM WHAT THE PATIENT WAS TAKING. PT CAN ONLY CONFIRM HE IS TAKING ALBUTEROL INHALER, BLOOD PRESSURE MEDICATION AND REMERON. DR. FULLER MADE AWARE.
--- NOTE | 2019-09-04 17:18 | NUR ---
Patient discharged with v/s stable. Written and verbal after care instructions given and explained. Patient alert, oriented and verbalized understanding of instructions. Ambulatory with steady gait. All questions addressed prior to discharge. ID band removed. Patient advised to follow up with PMD. Rx of LOSARTAN, ALBUTEROL, MOTRIN, BACTRIM, AND REMERON given. Patient educated on indication of medication including possible reaction and side effects. Opportunity to ask questions provided and answered.
[2019-09-04 17:19] VITALS: BP 185/97
== END 2019-09-04 17:14 | disposition home or self-care (01) ==
LOC: MED 16:24
DX: S62.634A Displaced fracture of distal phalanx of right ring finger, initial encounter for closed fracture (principal); J44.9 Chronic obstructive pulmonary disease, unspecified; I10 Essential (primary) hypertension; F17.210 Nicotine dependence, cigarettes, uncomplicated; Z87.442 Personal history of urinary calculi; Z98.890 Other specified postprocedural states; Z79.899 Other long term (current) drug therapy; Z88.0 Allergy status to penicillin; Z71.6 Tobacco abuse counseling; V19.9XXA Pedal cyclist (driver) (passenger) injured in unspecified traffic accident, initial encounter; Y93.89 Activity, other specified; Y92.89 Other specified places as the place of occurrence of the external cause; Y99.8 Other external cause status
CPT/HCPCS: 29130; 73110; 73130; 96372; 99283; J1885; J3490

== ENCOUNTER 2019-10-03 14:44 | Emergency (ER) | payer OTHER ==
[~2019-10-03] VITALS: Ht 157.5 cm; Wt 66.2 kg
[~2019-10-03 14:44] MED LIST changes: -BUPR300T70 PO; -HYDR-5122 PO; -HYDR25CA32 PO; -LORA-476 PO; -OXCA150T2 PO; -OXCA300T PO; -SULF1TAB12 PO
[2019-10-03 14:46] VITALS: BP 162/112
--- NOTE | 2019-10-03 15:04 | NUR ---
C/O THROAT PAIN AND FEELING "LIKE HIS THROAT IS CLOSING" STARTING EARLIER TODAY. O2 SAT RA 98%, PT SPEAKING CLEARLY, NO DROOLING NOTED. BP 162/112 AT THIS TIME, PT STATES HE DID NOT TAKE HIS BP MEDICATION THIS MORNING. DENIES CHOKING ON ANYTHING TODAY. DENIES SOB. STATES DYSPHAGIA WITH SOLIDS AND LIQUIDS. DENIES NEW FOODS. STATES TOOK NAPROXEN YESTERDAY. ORAL AIRWAY PATENT, NO OBSTRUCTION SEEN. DIFFUSE ERYTHEMA NOTED. PT SEEN LOOKING AT CELLPHONE, AND ASKING FOR CELLPHONE SYSTEM OPERATION SUPERINTENDENT AT THIS TIME. HX: HYPERTENSION RX: NAME MARIBETHK
--- NOTE | 2019-10-03 15:10 | NUR ---
PLACED ON PULSE OX, SATURATING 98% RA AT THIS TIME.
--- NOTE | 2019-10-03 15:12 | NUR ---
reece tejada at bedside
--- NOTE | 2019-10-03 15:17 | NUR ---
xray at bedside
[2019-10-03] MEDS ORDERED: DEXAMETHASONE 10 MG/ML VIAL PO ONE (15:20)
[2019-10-03] MEDS ORDERED: KETOROLAC 30 MG/ML VIAL IM ONE (15:20)
[2019-10-03] MEDS ORDERED: diphenhydrAMINE 50 MG/ML VIAL IM ONE (15:20)
--- NOTE | 2019-10-03 16:12 | NUR ---
nadr at this time. pain 5/10
[2019-10-03 16:43] VITALS: BP 156/90
--- NOTE | 2019-10-03 16:43 | NUR ---
Patient discharged with v/s stable. Written and verbal after care instructions given and explained MED REFILL AND THROAT DISCOMFORT. Patient alert, oriented and verbalized understanding of instructions. Ambulatory with steady gait. All questions addressed prior to discharge. ID band removed. Patient advised to follow up with PMD. Rx of IBUPROFEN, REMERON, ATARAX, AND LOSARTAN given. Patient educated on indication of medication including possible reaction and side effects. Opportunity to ask questions provided and answered. PT SIGNED HOMELESS WAIVER, AND WAS GIVEN LIST OF SHELTERS AND MEAL
== END 2019-10-03 16:44 | disposition home or self-care (01) ==
LOC: MED 14:44
DX: R03.0 Elevated blood-pressure reading, without diagnosis of hypertension (principal); J02.9 Acute pharyngitis, unspecified; J44.9 Chronic obstructive pulmonary disease, unspecified; I10 Essential (primary) hypertension; F17.210 Nicotine dependence, cigarettes, uncomplicated; Z76.0 Encounter for issue of repeat prescription; Z88.0 Allergy status to penicillin; Z90.49 Acquired absence of other specified parts of digestive tract; Z79.899 Other long term (current) drug therapy
CPT/HCPCS: 71045; 96372; 99283; J1100; J1200; J1885; Q0092

== ENCOUNTER 2020-01-29 22:04 | Emergency (ER) | payer OTHER ==
[~2020-01-29] VITALS: Ht 167.6 cm; Wt 72.6 kg
[2020-01-29 22:04] VITALS: BP 165/96
[2020-01-29] MEDS ORDERED: KETOROLAC 60 MG/2 ML VIAL IM ONE (22:55)
[2020-01-30 02:21] VITALS: BP 165/96
[2020-01-30] MEDS ORDERED: MORPHINE SULFATE 4 MG/ML SYR IM ONE (02:50)
== END 2020-01-30 02:21 | disposition home or self-care (01) ==
LOC: MED 22:04
DX: S62.291A Other fracture of first metacarpal bone, right hand, initial encounter for closed fracture (principal); J44.9 Chronic obstructive pulmonary disease, unspecified; I10 Essential (primary) hypertension; F20.9 Schizophrenia, unspecified; F15.90 Other stimulant use, unspecified, uncomplicated; Z79.899 Other long term (current) drug therapy; Z88.0 Allergy status to penicillin; X58.XXXA Exposure to other specified factors, initial encounter; Y93.89 Activity, other specified; Y92.89 Other specified places as the place of occurrence of the external cause; Y99.8 Other external cause status
CPT/HCPCS: 29125; 70450; 73130; 96372; 99284; J1885; Q0092

== ENCOUNTER 2020-03-12 16:36 | Emergency (ER) | payer OTHER ==
[~2020-03-12] VITALS: Ht 162.6 cm; Wt 69.9 kg
[2020-03-12 16:40] VITALS: BP 136/79
[2020-03-12] MEDS ORDERED: IBUPROFEN 600 MG TAB PO ONE (17:00)
[2020-03-12 17:38] VITALS: BP 136/79
== END 2020-03-12 17:40 | disposition home or self-care (01) ==
LOC: MED 16:36
DX: S92.152A Displaced avulsion fracture (chip fracture) of left talus, initial encounter for closed fracture (principal); J44.9 Chronic obstructive pulmonary disease, unspecified; I51.89 Other ill-defined heart diseases; I10 Essential (primary) hypertension; Z88.0 Allergy status to penicillin; Z79.899 Other long term (current) drug therapy; X58.XXXA Exposure to other specified factors, initial encounter; Y93.89 Activity, other specified; Y92.89 Other specified places as the place of occurrence of the external cause; Y99.8 Other external cause status
CPT/HCPCS: 73130; 99283